=== PATIENT | male | born 1955 | race Caucasian/White ===

== ENCOUNTER 2021-01-21 21:18 | Emergency (ER) | payer MEDICARE ==
[2021-01-21] MEDS ORDERED: ATACAND16 M1 PO (21:25)
[2021-01-21] MEDS ORDERED: NORVASC10 M1 PO (21:25)
[2021-01-21] MEDS ORDERED: TRIAMTERENE50 MG PO (21:26)
[2021-01-21] MEDS ORDERED: ASPIRIN81 MG PO (21:26)
[2021-01-21] MEDS ORDERED: FINASTERIDE5 MG PO (21:27)
[2021-01-21] MEDS ORDERED: DEPO-TESTOS200 MG/ML IM (21:29)
[2021-01-21] MEDS ORDERED: METHADONE10 M1 PO (21:30)
[2021-01-21] MEDS ORDERED: NEXIUM20 M1 PO (21:30)
[2021-01-21 22:07] LABS: HEMATOCRIT 40.8 % (39.0-50.0); HEMOGLOBIN 13.8 g/dl (14.0-18.0); MEAN CELL VOLUME 85.9 fL CALC (80.0-100.0); MEAN CORPUSCULAR HGB 29.1 pG CALC (26.0-32.0); MEAN CORPUSCULAR HGB CONC 33.8 g/dL CAL (32.0-36.0); NEUT# 1.66 thou/uL (1.82-7.42); RED BLOOD COUNT 4.75 mill/uL (4.70-6.10); RED CELL DISTRI WIDTH 12.7 % (11.5-15.5)
[2021-01-21 22:24] LABS: ALBUMIN 4.8 g/dL (3.2-5.0); ALKALINE PHOSPHATASE 73 u/l (38-126); ANION GAP 11 (6-22 (CALC)); BILIRUBIN, TOTAL 0.5 mg/dL (0.0-1.4); BUN 17 mg/dL (8-23); BUN/CREATININE RATIO 15 (12-20 (CALC)); CARBON DIOXIDE 32 mmol/l (22-30); CHLORIDE 94 mmol/l (95-108); CREATININE 1.1 mg/dL (0.7-1.3); GFR > 60 ML/MIN (>=60 (CALC)); GFR FOR AFR.AMER. > 60 ML/MIN (>=60 (CALC)); POTASSIUM 3.6 mmol/l (3.5-5.1); SGOT/AST 50 u/l (19-48); SODIUM 133 mmol/l (137-146)
[2021-01-22 00:14] LABS: URINE BILIRUBIN - DIPSTICK NEGATIVE (NEGATIVE); URINE BLOOD DIPSTICK NEGATIVE (NEGATIVE); URINE COLOR YELLOW; URINE GLUCOSE - DIPSTICK NEGATIVE (NEGATIVE); URINE KETONE NEGATIVE (NEGATIVE); URINE LEUK ESTERASE NEGATIVE (NEGATIVE); URINE NITRITE - DIPSTICK NEGATIVE (Negative); URINE PROTEIN - DIPSTICK NEGATIVE (NEG-TRACE); URINE UROBILINOGEN - DIPSTICK 0.2 E.U./dL (0.2)
[2021-01-22 01:04] VITALS: BP 148/66
== END 2021-01-22 01:20 | disposition home or self-care (01) ==
LOC: ED 21:18
PROVIDERS: Emergency Medicine
DX: I10 Essential (primary) hypertension (principal); R51.9 Headache, unspecified; I73.9 Peripheral vascular disease, unspecified

== ENCOUNTER 2021-01-29 | Emergency (ER) | payer MEDICARE ==
[~2021-01-29] MED LIST: ASPIRIN81 MG PO; ATACAND16 M1 PO; DEPO-TESTOS200 MG/ML IM; FINASTERIDE5 MG PO; METHADONE10 M1 PO; NEXIUM20 M1 PO; NORVASC10 M1 PO; TRIAMTERENE50 MG PO
[2021-01-29] MEDS ORDERED: KEFLEX500 M1 PO (18:26)
[2021-01-29] MEDS ORDERED: TRAMADOL HYDROC50 M1 PO (18:33)
== END 2021-01-29 18:54 | disposition home or self-care (01) ==
PROC: 0HQGXZZ Repair Left Hand Skin, External Approach (ICD-10-PCS; principal; 2021-01-29)
DX: S61.315A Laceration without foreign body of left ring finger with damage to nail, initial encounter (principal); S61.317A Laceration without foreign body of left little finger with damage to nail, initial encounter; S62.635A Displaced fracture of distal phalanx of left ring finger, initial encounter for closed fracture; S62.637A Displaced fracture of distal phalanx of left little finger, initial encounter for closed fracture; I10 Essential (primary) hypertension; I73.9 Peripheral vascular disease, unspecified; W11.XXXA Fall on and from ladder, initial encounter; Y92.009 Unspecified place in unspecified non-institutional (private) residence as the place of occurrence of the external cause; Z95.1 Presence of aortocoronary bypass graft; Z95.820 Peripheral vascular angioplasty status with implants and grafts

== ENCOUNTER 2022-04-16 06:28 | Emergency (ER) | payer MEDICARE ==
[~2022-04-16] VITALS: Ht 175.3 cm; Wt 92.0 kg
[~2022-04-16 06:28] MED LIST changes: +KEFLEX500 M1 PO; +TRAMADOL HYDROC50 M1 PO
[2022-04-16 07:03] LABS: HEMATOCRIT 43.4 % (39.0-50.0); HEMOGLOBIN 14.8 g/dl (14.0-18.0); IMMATURE GRANULOCYTES 0.4 % (0.0-5.0); MEAN CELL VOLUME 88.8 fL CALC (80.0-100.0); MEAN CORPUSCULAR HGB 30.3 pG CALC (26.0-32.0); MEAN CORPUSCULAR HGB CONC 34.1 g/dL CAL (32.0-36.0); NEUT# 3.43 thou/uL (1.82-7.42); RED BLOOD COUNT 4.89 mill/uL (4.70-6.10); RED CELL DISTRI WIDTH 12.2 % (11.5-15.5)
[2022-04-16 07:19] LABS: ALBUMIN 4.6 g/dL (3.2-5.0); ALKALINE PHOSPHATASE 64 u/l (38-126); AMYLASE 73 u/l (30-110); ANION GAP 13 (6-22 (CALC)); BILIRUBIN, TOTAL 0.5 mg/dL (0.0-1.4); BUN 15 mg/dL (8-23); BUN/CREATININE RATIO 17 (12-20 (CALC)); CARBON DIOXIDE 27 mmol/l (22-30); CHLORIDE 96 mmol/l (95-108); CREATININE 0.9 mg/dL (0.7-1.3); GFR FOR AFR.AMER. > 60 ML/MIN (>=60 (CALC)); GFR OTHER RACES > 60 ML/MIN (>=60 (CALC)); LIPASE 37 u/l (23-300); POTASSIUM 3.9 mmol/l (3.5-5.1); SGOT/AST 33 u/l (19-48); SODIUM 132 mmol/l (137-146); TOTAL PROTEIN 7.4 g/dL (6.3-8.2)
[2022-04-16] MEDS ORDERED: GABAPENTIN100 MG PO (07:19)
[2022-04-16] MEDS ORDERED: CENTRUM ADULTS1 TAB (07:19)
[2022-04-16 07:30] LABS: MYOGLOBIN 57 ng/mL (0 - 121)
[2022-04-16 08:17] LABS: URINE BILIRUBIN - DIPSTICK NEGATIVE (NEGATIVE); URINE BLOOD DIPSTICK NEGATIVE (NEGATIVE); URINE COLOR YELLOW; URINE GLUCOSE - DIPSTICK NEGATIVE (NEGATIVE); URINE KETONE NEGATIVE (NEGATIVE); URINE LEUK ESTERASE NEGATIVE (NEGATIVE); URINE PH 7.5 (4.5-8.0); URINE PROTEIN - DIPSTICK NEGATIVE (NEG-TRACE); URINE UROBILINOGEN - DIPSTICK 0.2 E.U./dL (0.2)
[2022-04-16 08:19] LABS: URINE NITRITE - DIPSTICK NEGATIVE (Negative)
[2022-04-16 09:45] VITALS: BP 128/64
[2022-04-16] MEDS ORDERED: DICYCLOMINE HCL20 MG PO (10:53)
[2022-04-16 11:20] VITALS: BP 134/46
[2022-04-16 11:31] VITALS: BP 135/65
[2022-04-16 12:02] VITALS: BP 135/65
== END 2022-04-16 12:02 | disposition home or self-care (01) ==
LOC: ED 06:28
PROVIDERS: Family Medicine
DX: R10.13 Epigastric pain (principal); I10 Essential (primary) hypertension; I73.9 Peripheral vascular disease, unspecified; Z95.1 Presence of aortocoronary bypass graft; Z95.820 Peripheral vascular angioplasty status with implants and grafts; Z20.822 Contact with and (suspected) exposure to COVID-19
CPT/HCPCS: Q9967

== ENCOUNTER 2023-12-10 22:29 | Emergency (ER) | payer MEDICARE ==
[~2023-12-10] VITALS: Ht 175.3 cm; Wt 80.0 kg
[2023-12-10] VITALS (7 sets, daily range): BP systolic 122–201; BP diastolic 54–96
[~2023-12-10 22:29] MED LIST changes: +CENTRUM ADULTS1 TAB; +DICYCLOMINE HCL20 MG PO; +GABAPENTIN100 MG PO
[2023-12-10] MEDS ORDERED: diazePAM 10 MG/2 ML VIAL IV ONE (22:50)
[2023-12-10] MEDS ORDERED: SODIUM CHLORIDE 0.9% 1,000 ML IV ONE (22:50)
[2023-12-10] MEDS ORDERED: ORPHENADRINE CITRATE 30 MG/ML AMP IV ONE (22:50)
[2023-12-10 23:25] LABS: ANION GAP 12 (6-22 (CALC)); BUN 20 mg/dL (8-23); BUN/CREATININE RATIO 21 (12-20 (CALC)); CARBON DIOXIDE 26 mmol/l (22-30); CHLORIDE 89 mmol/l (95-108); GFR FOR AFR.AMER. > 60 ML/MIN (>=60 (CALC)); GFR OTHER RACES > 60 ML/MIN (>=60 (CALC)); MAGNESIUM 1.9 mg/dL (1.6-2.3); POTASSIUM 4.4 mmol/l (3.5-5.1)
[2023-12-10 23:30] LABS: SODIUM 123 mmol/l (137-146)
[2023-12-10] MEDS ORDERED: SOD CHLORIDE1 G2 OD (23:53)
[2023-12-10] MEDS ORDERED: SODIUM CHLORIDE 1 GM/TAB TAB PO ONE (23:55)
[2023-12-11] VITALS: BP 126/52
[2023-12-13] MEDS ORDERED: NEBIVOLOL PO (09:20)
== END 2023-12-11 00:22 | disposition home or self-care (01) ==
LOC: ED 22:29
PROVIDERS: Family Medicine
DX: R25.2 Cramp and spasm (principal); E87.1 Hypo-osmolality and hyponatremia; I10 Essential (primary) hypertension; I73.9 Peripheral vascular disease, unspecified

== ENCOUNTER 2024-10-07 10:42 | Emergency (ER) | payer MEDICARE ==
[~2024-10-07] VITALS: Ht 172.7 cm; Wt 81.6 kg
[2024-10-07] VITALS (17 sets, daily range): BP systolic 131–183; BP diastolic 43–73
[~2024-10-07 10:42] MED LIST changes: +NEBIVOLOL PO; +SOD CHLORIDE1 G2 OD
[2024-10-07 13:32] LABS: BASO% 0.6 % (0-3); EOS% 1.2 % (0-8); HEMATOCRIT 38.5 % (39.0-50.0); HEMOGLOBIN 13.1 g/dl (14.0-18.0); IMMATURE GRANULOCYTES 0.3 % (0.0-5.0); LYMPH% 15.2 % (15-41); MEAN CELL VOLUME 88.1 fL CALC (80.0-100.0); MONO% 9.9 % (2-13); NEUT# 4.68 thou/uL (1.82-7.42); NEUT% 72.8 % (42-76); RED BLOOD COUNT 4.37 mill/uL (4.70-6.10); RED CELL DISTRI WIDTH 12.1 % (11.5-15.5)
[2024-10-07 13:56] LABS: BILIRUBIN, TOTAL 0.7 mg/dL (0.2-1.3); CREATININE 1.1 mg/dL (0.7-1.3); TOTAL PROTEIN 7.9 g/dL (6.3-8.2)
[2024-10-07 14:01] LABS: POTASSIUM 4.1 mmol/l (3.5-5.1)
[2024-10-07] MEDS ORDERED: CEPHALEXIN500 M1 PO (15:09)
== END 2024-10-07 15:24 | disposition home or self-care (01) ==
LOC: ED 10:42
PROVIDERS: Family Medicine
DX: R07.0 Pain in throat (principal); L03.116 Cellulitis of left lower limb; L03.115 Cellulitis of right lower limb; I10 Essential (primary) hypertension; I73.9 Peripheral vascular disease, unspecified; Z20.822 Contact with and (suspected) exposure to COVID-19
CPT/HCPCS: Q9967